=== PATIENT | female | born 1935 | race American Indian/Alaskan Native ===

== ENCOUNTER 2019-02-06 18:18 | Inpatient (IN) | payer MEDICARE ==
--- NOTE | 2019-02-06 19:48 | Emergency Department Report ---
HPI - General Chief Complaint: Weakness Time Seen by Provider: 02/06/19 19:18 - HPI HPI: 83-year-old female presents to this emergency Department by EMS from home with the complaint of some back pain and generalized body aches. The patient says that this has been going on for a long time and it has "never stopped." The patient is currently AAO 2 to person, place but not time and is a poor historian. EMS says that she has a history of hypertension and diabetes but the patient denies any past medical conditions. However she has a wrist band on showing a recent visit to [facility] and she has a right-sided chest port in place that was previously accessed. There is no family at bedside. EMS also says that the patient allegedly had a fall today. ED Past Medical Hx - Past Medical History Previous Medical History?: Yes Hx Hypertension: Yes Hx Diabetes: Yes Additional medical history: Chronic back pain - Social History Smoking Status: Never Smoker Substance Use Type: None ED Review of Systems ROS: Stated complaint: BACK PAIN/MALAISE Other details as noted in HPI Comment: Unobtainable due to pts medical conditions Musculoskeletal: back pain, myalgia Physical Exam - Physical Exam Vital Signs: Vital Signs 02/06/19 19:37 Temperature 97.9 F Pulse Rate 108 H Respiratory 18 Rate Blood Pressure 158/82 [Left] O2 Sat by Pulse 100 Oximetry Physical Exam: GENERAL: The patient is well-developed well-nourished. HEENT: Normocephalic. Atraumatic. Patient has moist mucous membranes. EYES: Extraocular motions are intact. NECK: Supple. Trachea is midline. CHEST/LUNGS: Clear to auscultation. There is no respiratory distress noted. HEART/CARDIOVASCULAR: Regular. There is no tachycardia. There is no gallop rub or murmur. ABDOMEN: Abdomen is soft, nontender. Patient has normal bowel sounds. There is no abdominal distention. SKIN: Skin is warm and dry. NEURO: The patient is awake and cooperative. AAO [address] but not time. Place is nonspecific as she can give hospital but not name of Hospital. Cranial nerves II through XII grossly intact. No facial asymmetry. MUSCULOSKELETAL: There is no tenderness or deformity. There is no limitation range of motion. BACK: There is no midline tenderness to palpation, step-off or obvious deformity. ED Course Vital Signs 02/06/19 19:37 Temperature 97.9 F Pulse Rate 108 H Respiratory 18 Rate Blood Pressure 158/82 [Left] O2 Sat by Pulse 100 Oximetry ED Medical Decision Making - Lab Data Result diagrams: 02/06/19 20:39 02/07/19 00:45 - Radiology Data Radiology results: report reviewed CT scan of the head without contrast does not show any bleed, shift, hydrocephalus, mass or large territorial infarct. CT scan of the cervical spine without contrast does not show any fracture, subluxation or any acute process. LUMBAR SPINE 3 VIEWS. INDICATION / CLINICAL INFORMATION: back pain COMPARISON: None available. FINDINGS: BONES / JOINT(S): Acute appearing compression superior endplate of L1. Mild degenerative disc disease scattered diffusely. SOFT TISSUES: No significant abnormality. ADDITIONAL FINDINGS: None. Signer Name: Azar Giang MD - Medical Decision Making Initially this patient was brought in with complaint of some back pain, generalized body aches and there was a questionable history of a fall. I later spoke with the patient's son who says that the patient did not in fact have any recent fall. However he just returned from his own admission to a hospital today and has not necessarily been around her enough to know. The patient has some baseline dementia. Her records from [place] indicate that she is AAO 2 at baseline, which she is at currently. For these reasons CT scan of the head and cervical spine, as well as x-rays of the thoracic and lumbar spine, were comp leted. The only abnormality found was a possible compression fracture of L1. Patient's labs show some hyperglycemia without signs of diabetic ketoacidosis, hyperkalemia with a potassium of 5.9, and a urinary tract infection. Patient was started on Rocephin and urine culture have been sent. She was given some IV fluid resuscitation and a dose of Kayexalate. The metabolic panel was repeated and the hyperkalemia has resolved. I attempted to ambulate this patient in the emergency department but she appears to weak. She will be admitted to the hospital for further evaluation and treatment was accepted for admission by the hospitalist, Dr. Mishra. - Differential Diagnosis hyperglycemia, DKA, dysrhythmia, CVA Critical Care Time: No Critical care attestation.: If time is entered above; I have spent that time in minutes in the direct care of this critically ill patient, excluding procedure time. ED Disposition Clinical Impression: Weakness, Hyperkalemia, Hyperglycemia Compression fracture of L1 vertebra Qualifiers: Encounter type: initial encounter Qualified Code(s): S32.010A - Wedge comp ression fracture of first lumbar vertebra, initial encounter for closed fracture Disposition: OP ADMIT IP TO THIS HOSP Is pt being admited?: Yes Condition: Fair Time of Disposition: 03:48
--- NOTE | 2019-02-06 20:45 | Cat Scan Report ---
CT head/brain wo con INDICATION: fall. TECHNIQUE: All CT scans at this location are performed using the following dose modulation technique: Automated exposure control. CONTRAST: None. COMPARISON: None available. FINDINGS: The ventricular system is appropriate in size and configuration without midline shift. Phys iologic calcification is noted at the basal ganglia. 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 Negative for mass, hemorrhage or acute appearing stroke. Imaged portions of the paranasal sinuses are clear. IMPRESSION: No acute abnormality. Signer Name: Azar Giang MD Signed: 02/06/2019 8:41 PM Workstation Name: [id number]
--- NOTE | 2019-02-06 20:49 | Cat Scan Report ---
CT cervical spine wo con INDICATION: fall. Neck pain. TECHNIQUE: All CT scans at this location are performed using the following dose modulation technique: Automated exposure control. CONTRAST: None. COMPARISON: None available. FINDINGS: Satisfactory alignment without vertebral compression. Degenerative disc disease is greatest at C4-C6 where changes are moderate. Small posterior osteophytes are present without significant bon y stenosis. No significant soft tissue injury. IMPRESSION: Degenerative disc disease greatest C4-C6 where changes are moderate. Signer Name: Azar Giang MD Signed: 02/06/2019 8:44 PM Workstation Name: [id number]
--- NOTE | 2019-02-06 20:50 | XRay Report ---
THORACIC SPINE 3 VIEWS. INDICATION / CLINICAL INFORMATION: back pain COMPARISON: None available. FINDINGS: BONES / JOINT(S): No acute fracture or subluxation. Are mild degenerative disc disease greatest mid t horacic spine. SOFT TISSUES: No significant abnormality. ADDITIONAL FINDINGS: None. Signer Name: Azar Giang MD Signed: 02/06/2019 8:45 PM Workstation Name: [id number]
--- NOTE | 2019-02-06 20:51 | XRay Report ---
THORACIC SPINE 3 VIEWS. INDICATION / CLINICAL INFORMATION: back pain COMPARISON: None available. FINDINGS: BONES / JOINT(S): Acute appearing compression superior endplate of L1. Mild degenerative disc disease scattered diffusely. SOFT TISSUES: No significant abnormality. ADDITIONAL FINDINGS: None. Signer Name: Azar Giang MD Signed: 02/06/2019 8:47 PM Workstation Name: [id number]
--- NOTE | 2019-02-06 20:51 | XRay Report ---
CHEST 1 VIEW INDICATION: trauma. COMPARISON: 01/25/2008 FINDINGS: Support devices: Sided chest port has its tip over the distal superior vena cava. Heart: Within normal limits. Lungs/Pleura: No acute air space or interstitial disease. Additional findings: None. IMPRESSION: No acute abnormality. Signer Name: Azar Giang MD Signed: 02/06/2019 8:46 PM Workstation Name: [id number]
[2019-02-06 21:17] LABS: Albumin 3.4 g/dL (3.9-5); Calcium 11.1 mg/dL (8.4-10.2)
[2019-02-06 21:37] LABS: Hematocrit 32.5 % (30.3-42.9); Hemoglobin 11.1 gm/dl (10.1-14.3); Mean Corpuscular HGB Conc 34 % (30-34); Mean Corpuscular Volume 91 fl (79-97); Platelet Count 227 K/mm3 (140-440); Red Blood Count 3.56 M/mm3 (3.65-5.03); Red Cell Distribution Width 14.6 % (13.2-15.2)
[2019-02-06] MEDS ORDERED: SODIUM POLYSTYRENE 15 GM/60 ML ORAL LIQD PO ONE (21:54)
[2019-02-06] MEDS ORDERED: SODIUM CHLORIDE 0.9% 1000 ML 1,000 ML IV ONE (22:03)
[2019-02-06 22:55] LABS: Bilirubin,Urine NEG (Negative); Blood,Urine SM (Negative); Color,Urine Yellow (Yellow); Mucus,Urine 2+ /HPF; Urobilinogen,Urine < 2.0 mg/dL (<2.0)
[2019-02-06 22:57] LABS: WBC,Urine > 182.0 /HPF (0.0-6.0)
[2019-02-06] MEDS ORDERED: cefTRIAXone/NS 1 GM/50 ML 1 GM/50 ML BAG IV ONE (22:59)
[2019-02-07 01:37] LABS: BUN/Creatinine Ratio 24; Blood Urea Nitrogen 24 mg/dL (7-17); Calcium 10.3 mg/dL (8.4-10.2); Hemolysis Index 44
[2019-02-07] MEDS ORDERED: ONDANSETRON 4 MG/2 ML INJ IV PRN (03:56)
--- NOTE | 2019-02-07 04:02 | History and Physical Report ---
History of Present Illness History of present illness: 83-year-old woman with a history of hypertension, dementia, diabetes, multiple myeloma, bladder mass was brought to the emergency room for evaluation of generalized weakness. Very difficult to obtain a history, her only complaint is abdominal pain. In the emergency room she was found to have a urinary tract infection, L1 compression fracture Review of systems Constitutional: no weight loss, chills, fever Ears, eyes, nose, mouth and throat: no nasal congestion, no nasal discharge, no sinus pressure, no vision change, no red eye. Neck: No neck pain or rigidity. Cardiovascular: no chest pain, palpitations Respiratory: no cough, shortness of breath Gastrointestinal: no hematochezia Genitourinary : no frequency , no hematuria Musculoskeletal: no joint swelling or muscle ache Integumentary: no rash, no pruritis Neurological:no parathesias numbness, focal weakness Endocrine: no cold or heat intolerance, no polyuria or polydipsia Hematologic/Lymphatic: no easy bruising, no easy bleeding, no gland swelling Allergic/Immunologic: no urticaria, no angioedema. PAST MEDICAL HISTORY: hypertension, dementia, diabetes, multiple myeloma, bladder mass PAST SURGICAL HISTORY: Unknown SOCIAL HISTORY: Denies alcohol, tobacco, drug FAMILY HISTORY: Hypertension Medications and Allergies Allergies Allergy/AdvReac Type Severity Reaction Status Date / Time No Known Allergies Allergy Verified 02/07/19 04:04 Home Medications Medication Instructions Recorded Confirmed Last Taken Type Butalb/Acetaminophen/Caffeine 02/07/19 Unknown History [Fioricet 50-300-40 mg CAP] Duloxetine HCl [Cymbalta] 20 mg PO 02/07/19 Unknown History Folic Acid 1 mg PO 02/07/19 Unknown History Insulin Aspart (Nf) [NovoLOG 02/07/19 Unknown History Flexpen] Insulin Detemir [Levemir Flextouch] 100 unit SQ 02/07/19 Unknown History Lidocaine [Lidoderm] 1 each TP 02/07/19 Unknown History Metformin HCl [Metformin HCl ER] 02/07/19 Unknown History Oxycodone HCl/Acetaminophen 02/07/19 Unknown History [Percocet 10/325 mg] Pantoprazole [Protonix TAB] 02/07/19 Unknown History QUEtiapine [SEROquel] 25 mg PO BID 02/07/19 02/07/19 Unknown History amLODIPine [Norvasc] 2.5 mg PO DAILY 02/07/19 02/07/19 Unknown History Active Meds: Active Medications Acetaminophen (Tylenol) 650 mg PO Q4H PRN PRN Reason: Pain MILD(1-3)/Fever >100.5/HASTINGS Enoxaparin Sodium (Enoxaparin) 30 mg SUB-Q QDAY JAMISON Sodium Chloride (Nacl 0.45% 1000 Ml) 1,000 mls @ 75 mls/hr IV DIRECT JAMISON Ceftriaxone Sodium (Rocephin/Ns 1 Gm/50 Ml) 1 gm in 50 mls @ 100 mls/hr IV Q24HR JAMISON; Protocol Ondansetron HCl (Zofran) 4 mg IV Q8H PRN PRN Reason: Nausea And Vomiting Sodium Chloride (Sodium Chloride Flush Syringe 10 Ml) 10 ml IV BID JAMISON Sodium Chloride (Sodium Chloride Flush Syringe 10 Ml) 10 ml IV PRN PRN PRN Reason: LINE FLUSH Exam - Physical Exam Narrative exam: Gen. appearance: Patient lying in bed, no apparent distress HEENT: Normocephalic, atraumatic, pupils equally round and reactive to light, extraocular movement intact, and no sclericterus,. No JVD or thyromegaly or nodule,neck supple, no carotid bruit ,mucous membranes moist, no exudate or erythema Heart: S1, S2, irregular rate and rhythm Lungs: Clear bilaterally, breathing comfortable Abdomen: Positive bowel sounds, tender, nondistended, no organomegaly Extremity:no edema cyanosis, clubbing Skin: no rash, dry, warm Neuro: cranial nerves II-12 intact, speech is fluent, motor and sensory intact - Constitutional Vitals: Temp Pulse Resp BP Pulse Ox 97.9 F 92 H 16 146/64 98 02/06/19 19:37 02/07/19 02:00 02/07/19 02:00 02/07/19 02:00 02/06/19 22:17 Results - Labs CBC & Chem 7: 02/06/19 20:39 02/07/19 00:45 Labs: Abnormal lab results 02/06/19 02/06/19 02/06/19 Range/Units 20:39 20:39 22:17 RBC 3.56 L (3.65-5.03) M/mm3 Sodium (137-145) mmol/L Potassium 5.9 H (3.6-5.0) mmol/L Chloride (98-107) mmol/L Carbon Dioxide 21 L (22-30) mmol/L BUN 25 H (7-17) mg/dL Glucose 268 H (65-100) mg/dL Calcium 11.1 H (8.4-10.2) mg/dL Total Protein 9.2 H (6.3-8.2) g/dL Albumin 3.4 L (3.9-5) g/dL Urine pH 8.0 H (5.0-7.0) Urine WBC (Auto) > 182.0 H (0.0-6.0) /HPF U Epithel Cells (Auto) 14.0 H (0-13.0) /HPF 02/07/19 Range/Units 00:45 RBC (3.65-5.03) M/mm3 Sodium 146 H (137-145) mmol/L Potassium (3.6-5.0) mmol/L Chloride 109.3 H (98-107) mmol/L Carbon Dioxide (22-30) mmol/L BUN 24 H (7-17) mg/dL Glucose 259 H (65-100) mg/dL Calcium 10.3 H (8.4-10.2) mg/dL Total Protein (6.3-8.2) g/dL Albumin (3.9-5) g/dL Urine pH (5.0-7.0) Urine WBC (Auto) (0.0-6.0) /HPF U Epithel Cells (Auto) (0-13.0) /HPF - Imaging and Cardiology CT Scan - head: report reviewed Assessment and Plan X-ray of the thoracic and lumbar spine reviewed CT head and CT spine reviewed Assessment Failure to thrive/urinary tract infection Start Rocephin, follow cultures L1 fracture Consult interventional radiology, physical therapy Abdominal pain Check CT abdomen hypertension IV hydralazine until meds are reconciled dementia Continue to monitor diabetes, Check fingersticks initiate insulin sliding scale DVT prophylaxis
[2019-02-07] MEDS ORDERED: hydrALAZINE 20 MG/1 ML INJ IV PRN (04:45)
--- NOTE | 2019-02-07 04:55 | Cat Scan Report ---
CT ABDOMEN AND PELVIS WITHOUT CONTRAST INDICATION / CLINICAL INFORMATION: MAIN: NAUSEA, VOMITING, GENERALIZED abd pain. . TECHNIQUE: Axial CT images were obtained through the abdomen and pelvis without IV contrast. All CT scans at [facility] location are performed using CT dose reduction for ALARA by means of automated exposure control. COMPARISON: None available. FINDINGS: LOWER CHEST: No significant abnormality. LIVER: Several low dense lesions within the liver largest measuring 1.7 cm, metastatic disease is a c oncern GALLBLADDER: Possible small calculus within the gallbladder BILE DUCTS: Biliary duct system is prominent with the common bile duct measures 7 mm PANCREAS: No significant abnormality. SPLEEN: No significant abnormality. ADRENALS: No significant abnormality. RIGHT KIDNEY and URETER: No significant abnormality. LEFT KIDNEY and URETER: No significant abnormality. STOMACH and SMALL BOWEL: No significant abnormality. COLON: Moderate amount of feces is present in the colon APPENDIX: Not identified PERITONEUM: No free fluid. No free air. No fluid collection. LYMPH NODES: No significant adenopathy. AORTA and ARTERIES: No significant abnormality. IVC and VEINS: No significant abnormality. URINARY BLADDER: Moderate severe distention of the urinary bladder. REPRODUCTIVE ORGANS: No significant abnormality. ADDITIONAL FINDINGS: None. SKELETAL SYSTEM: Compression fracture L1 is present with approximately 30% loss of vertebral body hei ght Total right hip arthroplasty is present-streak artifact noted IMPRESSION: 1. Several low dense lesions within the liver worrisome for metastatic disease, CT with intravenous c ontrast be of benefit for further evaluation 2. Urinary bladder distention 3. Large volume of gas and feces in the colon 4. Questionable cholelithiasis Signer Name: Lopez Ramos MD Signed: 02/07/2019 4:51 AM Workstation Name: [email or web address]
[2019-02-07] MEDS: ACETAMINOPHEN 325 MG TAB PO PRN ×3 (06:37→19:08)
[2019-02-07] MEDS: SODIUM CHLORIDE 0.45% 1000 ML 1,000 ML IV SCH ×2 (06:37→19:10)
[2019-02-07] MEDS: ENOXAPARIN 30 MG/0.3 ML INJ SUB-Q SCH (09:17)
[2019-02-07] MEDS: INSULIN LISPRO 100 UNIT/ML SUB-Q SCH ×4 (09:17→22:52)
--- NOTE | 2019-02-07 12:17 | Event Note ---
Date: 02/07/19 Patient with UTI, hyperkalemia,failure to thrive. I have seen and examined her. Continue current management.
--- NOTE | 2019-02-07 12:33 | Event Note ---
Date: 02/07/19 unable to obtain history from the patient due to dementia patient with no acute complaints will have IR evaluate imaging and comment tomorrow
[2019-02-07] MEDS: cefTRIAXone/NS 1 GM/50 ML 1 GM/50 ML BAG IV SCH (23:59)
[2019-02-08 04:17] LABS: Basophils % (Auto) 0.4 % (0.0-1.8); Eosinophils % (Auto) 0.6 % (0.0-4.3); Hematocrit 29.9 % (30.3-42.9); Hemoglobin 10.1 gm/dl (10.1-14.3); Lymphocytes # (Auto) 0.8 K/mm3 (1.2-5.4); Lymphocytes % (Auto) 16.7 % (13.4-35.0); Mean Corpuscular HGB Conc 34 % (30-34); Mean Corpuscular Volume 89 fl (79-97); Monocytes # (Auto) 0.5 K/mm3 (0.0-0.8); Monocytes % (Auto) 9.1 % (0.0-7.3); Platelet Count 195 K/mm3 (140-440); Red Blood Count 3.34 M/mm3 (3.65-5.03); Red Cell Distribution Width 14.5 % (13.2-15.2)
[2019-02-08 04:32] LABS: BUN/Creatinine Ratio 23; Blood Urea Nitrogen 18 mg/dL (7-17); Calcium 9.2 mg/dL (8.4-10.2); Hemolysis Index 4
[2019-02-08] MEDS ORDERED: POTASSIUM CHLORIDE ER 20 MEQ TAB PO ONE (04:58)
[2019-02-08] MEDS: ACETAMINOPHEN 325 MG TAB PO PRN (05:37)
[2019-02-08] MEDS: INSULIN LISPRO 100 UNIT/ML SUB-Q SCH ×4 (09:00→22:24)
[2019-02-08] MEDS: ENOXAPARIN 30 MG/0.3 ML INJ SUB-Q SCH (09:15)
[2019-02-08] MEDS: HYDROcodone/ACETAMINOPHEN 5-325 MG TAB PO PRN (12:29)
--- NOTE | 2019-02-08 14:50 | Progress Note ---
Assessment and Plan Assessment and plan: Failure to thrive PT consulted Urinary tract infection Started Rocephin, follow cultures L1 fracture Consulted interventional radiology, physical therapy Lumbar Brace recommended and I placed order Hypertension IV hydralazine until meds are reconciled Dementia Supportive carer Diabetes mellitus type 2 Check fingersticks initiate insulin sliding scale DVT prophylaxis with Lovenox Poss dc tomorrow History Interval history: Generalized weakness back pain Hospitalist Physical - Physical exam Narrative exam: Gen: Not in acute distress, lying in bed,malnourished HEENT: Normocephalic, atraumatic Neck: supple, no JVD Heart: S1 and S2 reg, no murmurs, rubs or gallop Lungs: Clear to auscultation, no wheezing Abd: soft, non tender , non distended, normal BS Ext: No edema, no clubbing, no cyanosis Neuro: Awake,alert, confused, dementia, moves all ext Back:Tender lower back - Constitutional Vitals: Temp Pulse Resp BP Pulse Ox 97.9 F 73 18 143/70 98 02/08/19 08:05 02/08/19 08:06 02/08/19 08:06 02/08/19 08:06 02/08/19 10:00 Results - Labs CBC & Chem 7: 02/08/19 03:46 02/08/19 03:46 Labs: Laboratory Last Values WBC 5.1 K/mm3 (4.5-11.0) 02/08/19 03:46 RBC 3.34 M/mm3 (3.65-5.03) L 02/08/19 03:46 Hgb 10.1 gm/dl (10.1-14.3) 02/08/19 03:46 Hct 29.9 % (30.3-42.9) L 02/08/19 03:46 MCV 89 fl (79-97) 02/08/19 03:46 MCH 30 pg (28-32) 02/08/19 03:46 MCHC 34 % (30-34) 02/08/19 03:46 RDW 14.5 % (13.2-15.2) 02/08/19 03:46 Plt Count 195 K/mm3 (140-440) 02/08/19 03:46 Lymph % (Auto) 16.7 % (13.4-35.0) 02/08/19 03:46 [place] % (Auto) 9.1 % (0.0-7.3) H 02/08/19 03:46 Eos % (Auto) 0.6 % (0.0-4.3) 02/08/19 03:46 Baso % (Auto) 0.4 % (0.0-1.8) 02/08/19 03:46 Lymph # 0.8 K/mm3 (1.2-5.4) L 02/08/19 03:46 [place] # 0.5 K/mm3 (0.0-0.8) 02/08/19 03:46 Eos # 0.0 K/mm3 (0.0-0.4) 02/08/19 03:46 Baso # 0.0 K/mm3 (0.0-0.1) 02/08/19 03:46 Seg Neutrophils % 73.2 % (40.0-70.0) H 02/08/19 03:46 Seg Neutrophils # 3.7 K/mm3 (1.8-7.7) 02/08/19 03:46 Sodium 135 mmol/L (137-145) L D 02/08/19 03:46 Potassium 3.0 mmol/L (3.6-5.0) L D 02/08/19 03:46 Chloride 103.7 mmol/L (98-107) 02/08/19 03:46 Carbon Dioxide 21 mmol/L (22-30) L 02/08/19 03:46 Anion Gap 13 mmol/L 02/08/19 03:46 BUN 18 mg/dL (7-17) H 02/08/19 03:46 Creatinine 0.8 mg/dL (0.7-1.2) 02/08/19 03:46 Estimated GFR > 60 ml/min 02/08/19 03:46 BUN/Creatinine Ratio 23 % 02/08/19 03:46 Glucose 124 mg/dL (65-100) H 02/08/19 03:46 POC Glucose 195 (70-105) H 02/08/19 11:44 Calcium 9.2 mg/dL (8.4-10.2) 02/08/19 03:46 Total Bilirubin 0.50 mg/dL (0.1-1.2) 02/06/19 20:39 AST 26 units/L (5-40) 02/06/19 20:39 ALT 10 units/L (7-56) 02/06/19 20:39 Alkaline Phosphatase 93 units/L (35-129) 02/06/19 20:39 Troponin T < 0.010 ng/mL (0.00-0.029) 02/07/19 02:12 Total Protein 9.2 g/dL (6.3-8.2) H 02/06/19 20:39 Albumin 3.4 g/dL (3.9-5) L 02/06/19 20:39 Albumin/Globulin Ratio 0.6 % 02/06/19 20:39 Urine Color Yellow (Yellow) 02/06/19 22:17 Urine Turbidity Cloudy (Clear) 02/06/19 22:17 Urine pH 8.0 (5.0-7.0) H 02/06/19 22:17 Ur Specific [place] 1.014 (1.003-1.030) 02/06/19 22:17 Urine Protein 30 mg/dl mg/dL (Negative) 02/06/19 22:17 Urine Glucose (UA) 50 mg/dL (Negative) 02/06/19 22:17 Urine Ketones Tr mg/dL (Negative) 02/06/19 22:17 Urine Blood Sm (Negative) 02/06/19 22:17 Urine Nitrite Neg (Negative) 02/06/19 22:17 Urine Bilirubin Neg (Negative) 02/06/19 22:17 Urine Urobilinogen < 2.0 mg/dL (<2.0) 02/06/19 22:17 Ur Leukocyte Esterase Lg (Negative) 02/06/19 22:17 Urine WBC (Auto) > 182.0 /HPF (0.0-6.0) H 02/06/19 22:17 Urine RBC (Auto) 7.0 /HPF (0.0-6.0) 02/06/19 22:17 U Epithel Cells (Auto) 14.0 /HPF (0-13.0) H 02/06/19 22:17 Urine WBC Clumps 2+ /HPF 02/06/19 22:17 Urine Mucus 2+ /HPF 02/06/19 22:17 Active Medications - Current Medications Current Medications: Generic Name Dose Route Start Last Admin Trade Name Freq PRN Reason Stop Dose Admin Acetaminophen 650 mg 02/07/19 03:56 02/08/19 05:37 Tylenol PO 650 mg Q4H PRN Administration Pain MILD(1-3)/Fever >100.5/HASTINGS Acetaminophen/Hydrocodone Bitart 1 each 02/08/19 11:53 02/08/19 12:29 [place] 5/325 PO 1 each Q6H PRN Administration Pain, Moderate (4-6) Enoxaparin Sodium 30 mg 02/07/19 10:00 02/08/19 09:15 Enoxaparin SUB-Q 30 mg QDAY JAMISON Administration Hydralazine HCl 5 mg 02/07/19 04:45 Apresoline IV Q6H PRN Hypertension Ceftriaxone Sodium 1 gm in 50 mls @ 100 mls/hr 02/07/19 22:00 02/07/19 23:59 Rocephin/Ns 1 Gm/50 Ml IV 100 mls/hr Q24H JAMISON Administration Protocol Insulin Human Lispro 0 unit 02/07/19 09:00 02/08/19 12:28 Humalog SUB-Q 2 unit ACHS JAMISON Administration Protocol Ondansetron HCl 4 mg 02/07/19 03:56 Zofran IV Q8H PRN Nausea And Vomiting Sodium Chloride 10 ml 02/07/19 10:00 02/08/19 09:15 Sodium Chloride Flush Syringe 10 Ml IV 10 ml BID JAMISON Administration Sodium Chloride 10 ml 02/07/19 03:56 Sodium Chloride Flush Syringe 10 Ml IV PRN PRN LINE FLUSH Nutrition/Malnutrition Assess - Dietary Evaluation Nutrition/Malnutrition Findings: Nutrition Notes Start: 02/07/19 1 1:37 Freq: Status: Active Protocol: Document 02/08/19 10:52 LM (Rec: 02/08/19 11:02 LM [email or web address]) Nutrition Notes Initial or Follow up Reassessment Current Diagnosis Diabetes,Hypertension Other Pertinent Diagnosis bladder mass, UTI, compression fracture of L1 vertebra, dementia Current Diet consistent CHO/cardiac Labs/Tests Na 135 K 3 BUN 18 BG 124 Pertinent Medications Humalog Height 5 ft 9 in Weight 42.32 kg [place] Body Weight (kg) 65.90 BMI 13.7 Weight Status Emaciated Subjective/Other Information Low BMI screen. Already following pt. Pt ate 50% of breakfast this AM. Pt stated she did not eat much at home [employer] and beleives she lost 20 lb. Pt could not recall time frame of wt loss or UBW. Pt stated she does not like Glucerna and has no trouble chewing or swallowing. Percent of energy/protein needs met: 67%/81% Burn Absent Trauma Absent GI Symptoms None Current % PO Fair (50-74%) Minimum of two criteria Yes Body Fat Depletion Moderate depletion (severe) Muscle Mass Moderate Depletion (severe) #1 Nutrition Diagnosis Malnutrition As Evidenced by Signs and Symptoms muscle and fat wasting, 20 lb wt loss Diagnosis Progress(for reassessment Continues documentation) Is patient on ventilator? No Is Patient Ambulatory and/or Out of Bed No REE-([facility]-confined to bed) 1150.356 Kcal/Kg value to use for calculation 38 Approximate Energy Requirements Using 1608 kcal/Kg Calculation Used for Recommendations Kcal/kg Additional Notes Protein: 51-63g (1.2-1.5g/kg) Fluid: 1 ml/kcal Nutrition Intervention Change Diet Order: Continue current Add Supplement/Snack (indicate name/kcal D/C Glucerna /protein ) Goal #1 Meet at least 80% of energy and protein needs Goal #2 wt gain/maintenacne Anticipated Discharge Needs: Consistent CHO/cardia with ONS Follow-Up By: 02/11/19 Additional Comments F/U for intakes
--- NOTE | 2019-02-08 15:52 | Consultation ---
History of Present Illness - Reason for Consult Consult date: 02/08/19 L1 compression fracture - History of Present Illness 83-year-old woman with a history of hypertension, dementia, diabetes, multiple myeloma, bladder mass was brought to the emergency room for evaluation of generalized weakness. Very difficult to obtain a history, her only complaint is abdominal pain. In the emergency room she was found to have a urinary tract infection, L1 compression fracture Review of systems Constitutional: no weight loss, chills, fever Ears, eyes, nose, mouth and throat: no nasal congestion, no nasal discharge, no sinus pressure, no vision change, no red eye. Neck: No neck pain or rigidity. Cardiovascular: no chest pain, palpitations Respiratory: no cough, shortness of breath Gastrointestinal: no hematochezia Genitourinary : no frequency , no hematuria Musculoskeletal: no joint swelling or muscle ache Integumentary: no rash, no pruritis Neurological:no parathesias numbness, focal weakness Endocrine: no cold or heat intolerance, no polyuria or polydipsia Hematologic/Lymphatic: no easy bruising, no easy bleeding, no gland swelling Allergic/Immunologic: no urticaria, no angioedema. PAST MEDICAL HISTORY: hypertension, dementia, diabetes, multiple myeloma, bladder mass PAST SURGICAL HISTORY: Unknown SOCIAL HISTORY: Denies alcohol, tobacco, drug FAMILY HISTORY: Hypertension Medications and Allergies Allergies Allergy/AdvReac Type Severity Reaction Status Date / Time Sulfa (Sulfonamide Allergy Unknown Verified 02/07/19 07:44 Antibiotics) Home Medications Medication Instructions Recorded Confirmed Last Taken Type Acetaminophen [Tylenol] 650 mg PO Q6HR PRN 02/07/19 02/07/19 Unknown History Bisacodyl [Women's Gentle Laxative] 5 mg PO DAILY PRN 02/07/19 02/07/19 Unknown History Duloxetine HCl [Cymbalta] 20 mg PO DAILY 02/07/19 02/07/19 Unknown History Folic Acid 1 mg PO DAILY 02/07/19 02/07/19 Unknown History Insulin Glargine [Lantus VIAL] 10 unit SUB-Q DAILY 02/07/19 02/07/19 Unknown History Lidocaine [Lidoderm] 1 each TP DAILY 02/07/19 02/07/19 Unknown History Pantoprazole [Protonix TAB] 40 mg PO DAILY 02/07/19 02/07/19 Unknown History Polyethylene Glycol 3350 [Miralax 17 gm PO DAILY 02/07/19 02/07/19 Unknown History 3350] QUEtiapine [SEROquel] 25 mg PO BID 02/07/19 02/07/19 Unknown History Sennosides [Senna] 2 tab PO HS 02/07/19 02/07/19 Unknown History amLODIPine [Norvasc] 2.5 mg PO DAILY 02/07/19 02/07/19 Unknown History Active Meds: Active Medications Acetaminophen (Tylenol) 650 mg PO Q4H PRN PRN Reason: Pain MILD(1-3)/Fever >100.5/HASTINGS Last Admin: 02/08/19 05:37 Dose: 650 mg Documented by: Acetaminophen/Hydrocodone Bitart ([place] 5/325) 1 each PO Q6H PRN PRN Reason: Pain, Moderate (4-6) Last Admin: 02/08/19 12:29 Dose: 1 each Documented by: Enoxaparin Sodium (Enoxaparin) 30 mg SUB-Q QDAY [facility] Last Admin: 02/08/19 09:15 Dose: 30 mg Documented by: Hydralazine HCl (Apresoline) 5 mg IV Q6H PRN PRN Reason: Hypertension Ceftriaxone Sodium (Rocephin/Ns 1 Gm/50 Ml) 1 gm in 50 mls @ 100 mls/hr IV Q24H [facility]; Protocol Last Admin: 02/07/19 23:59 Dose: 100 mls/hr Documented by: Insulin Human Lispro (Humalog) 0 unit SUB-Q ACHS [facility]; Protocol Last Admin: 02/08/19 12:28 Dose: 2 unit Documented by: Ondansetron HCl (Zofran) 4 mg IV Q8H PRN PRN Reason: Nausea And Vomiting Sodium Chloride (Sodium Chloride Flush Syringe 10 Ml) 10 ml IV BID [facility] Last Admin: 02/08/19 09:15 Dose: 10 ml Documented by: Sodium Chloride (Sodium Chloride Flush Syringe 10 Ml) 10 ml IV PRN PRN PRN Reason: LINE FLUSH Review of Systems ROS unobtainable: due to mental status Exam - Constitutional Vitals: Temp Pulse Resp BP Pulse Ox 98.0 F 107 H 18 119/65 98 02/08/19 13:09 02/08/19 13:10 02/08/19 13:09 02/08/19 13:09 02/08/19 13:10 General appearance: Present: mild distress (diffuse weakness, sacral discomfort), cachectic - EENT Eyes: Present: EOM intact ENT: hearing intact - Respiratory Respiratory effort: normal - Abdominal General gastrointestinal: Present: soft, non-tender - Neurologic Neurologic: moves all extremities, other (patient has diffuse achiness/myalgias. Her spine was palpated with discomfort at the sacral levels, with only mild discomfort at her upper lumbar level) Results - Labs CBC & Chem 7: 02/08/19 03:46 02/08/19 03:46 Labs: Abnormal lab results 02/07/19 02/08/19 02/08/19 Range/Units 16:50 03:46 03:46 RBC 3.34 L (3.65-5.03) M/mm3 Hct 29.9 L (30.3-42.9) % [place] % (Auto) 9.1 H (0.0-7.3) % Lymph # 0.8 L (1.2-5.4) K/mm3 Seg Neutrophils % 73.2 H (40.0-70.0) % Sodium 135 L D (137-145) mmol/L Potassium 3.0 L D (3.6-5.0) mmol/L Carbon Dioxide 21 L (22-30) mmol/L BUN 18 H (7-17) mg/dL Glucose 124 H (65-100) mg/dL POC Glucose 170 H (70-105) 02/08/19 02/08/19 Range/Units 07:35 11:44 RBC (3.65-5.03) M/mm3 Hct (30.3-42.9) % [place] % (Auto) (0.0-7.3) % Lymph # (1.2-5.4) K/mm3 Seg Neutrophils % (40.0-70.0) % Sodium (137-145) mmol/L Potassium (3.6-5.0) mmol/L Carbon Dioxide (22-30) mmol/L BUN (7-17) mg/dL Glucose (65-100) mg/dL POC Glucose 153 H 195 H (70-105) - Imaging and Cardiology CT scan - abdomen: report reviewed, image reviewed Assessment and Plan 83-year-old female with multiple medical issues including L1 compression fracture. Patient has diffuse myalgias and arthralgias with cachexia and discomfort at her sacral region. She has only mild discomfort at her upper lumbar levels. Kyphoplasty would provide minimal benefit for this patient. Recommend attempting to use lumbar brace to see if this provides a benefit, and if not, conservative care with pain medication is reasonable. Unfortunately, patient has diffuse myalgias and arthralgias and failure to thrive rather than a focal pain source at L1. Can follow up as outpatient if desired.
[2019-02-08] MEDS: cefTRIAXone/NS 1 GM/50 ML 1 GM/50 ML BAG IV SCH (21:06)
[2019-02-08] MEDS ORDERED: ACETAMINOPHEN 325 MG TAB PO PRN (21:56)
[2019-02-08] MEDS ORDERED: SENNOSIDES PO SCH (22:00)
[2019-02-08] MEDS: QUEtiapine 25 MG TAB PO SCH (22:22)
[2019-02-08] MEDS: SENNOSIDES 8.6 MG TAB PO SCH (22:22)
[2019-02-09] MEDS: ACETAMINOPHEN 325 MG TAB PO PRN (06:35)
[2019-02-09 06:36] LABS: Hematocrit 26.5 % (30.3-42.9); Hemoglobin 8.8 gm/dl (10.1-14.3); Mean Corpuscular HGB Conc 33 % (30-34); Mean Corpuscular Volume 91 fl (79-97); Platelet Count 201 K/mm3 (140-440); Red Blood Count 2.92 M/mm3 (3.65-5.03); Red Cell Distribution Width 14.7 % (13.2-15.2)
[2019-02-09 07:12] LABS: BUN/Creatinine Ratio 16; Blood Urea Nitrogen 13 mg/dL (7-17); Calcium 9.4 mg/dL (8.4-10.2); Hemolysis Index 10
[2019-02-09] MEDS: INSULIN LISPRO 100 UNIT/ML SUB-Q SCH ×4 (07:30→22:05)
[2019-02-09] MEDS: INSULIN GLARGINE 100 UNITS/ML SUB-Q SCH ×2 (08:37→19:47)
[2019-02-09] MEDS: amLODIPine 5 MG TAB PO SCH ×2 (08:41→19:45)
[2019-02-09] MEDS: FOLIC ACID 1 MG TAB PO SCH ×2 (08:42→19:46)
[2019-02-09] MEDS: DULoxetine 20 MG CAP PO SCH ×2 (08:42→19:47)
[2019-02-09] MEDS: ENOXAPARIN 30 MG/0.3 ML INJ SUB-Q SCH ×2 (08:43→19:47)
[2019-02-09] MEDS: PANTOPRAZOLE 40 MG TAB PO SCH ×2 (08:43→19:46)
[2019-02-09] MEDS: QUEtiapine 25 MG TAB PO SCH ×3 (08:43→22:06)
[2019-02-09] MEDS: LIDOCAINE 5% 1 EACH PATCH TD SCH ×2 (08:43→19:46)
[2019-02-09] MEDS: HYDROcodone/ACETAMINOPHEN 5-325 MG TAB PO PRN ×2 (10:26→20:03)
--- NOTE | 2019-02-09 13:24 | Discharge Summary ---
Providers - Providers Date of Admission: 02/07/19 03:56 Date of discharge: 02/10/19 Attending physician: RASHID BURRELL 02/07/19 04:33 Physical Therapy Evaluation and Treat [CONS] Routine Comment: Reason For Exam: eval 02/07/19 06:00 Consult to Interventional Radiology [CONS] Routine Consulting Provider: JAD REDDY Reason For Exam: compression fx Place consult to:: answering service Notified:: notified 02/08/19 15:50 Physical Therapy Evaluation and Treat [CONS] Routine Comment: Reason For Exam: lumbar brace 02/08/19 16:37 Consult to Case Management [CONS] Urgent Services Needed at Discharge: Other Notified:: LEFT MSG Was contact made?: No Comment:: NEED BACK BRACE OR LUMBAR CORSET 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 The patient was admitted with diagnosis of urinary tract infection and L1 compression fracture. The patient was seen by Dr. collado for potential kyphoplasty. However, Dr. Kim felt that kyphoplasty would provide minimal benefit and recommended attempting to use lumbar brace to see if this provides a benefit, and if not, conservative care with pain medication is reasonable. PT evaluated the patient and recommended subacute rehab. However, the family refused. I discussed the case with social work who will arrange for home PT/OT. With regards to the UTI, patient was treated with Rocephin and urine culture was negative. Patient had no evidence of leukocytosis at the time of discharge. Dedicated discharge time 32 minutes. Disposition: DC-01 TO HOME OR SELFCARE Time spent for discharge: 32 - Discharge Diagnoses (1) Compression fracture of L1 vertebra Status: Acute Qualifiers: Encounter type: initial encounter Qualified Code(s): S32.010A - [place] compression fracture of first lumbar vertebra, initial encounter for closed fracture (2) Hyperglycemia Status: Acute (3) Weakness Status: Acute Core Measure Documentation - Palliative Care Palliative Care/ Comfort Measures: Not Applicable - Core Measures Any of the following diagnoses?: none Exam - Constitutional Vitals: Temp Pulse Resp BP Pulse Ox 98.2 F 95 H 16 140/80 97 02/09/19 07:38 02/09/19 08:41 02/09/19 07:38 02/09/19 08:41 02/09/19 07:38 General appearance: Present: no acute distress, well-nourished - EENT Eyes: Present: PERRL ENT: hearing intact, clear oral mucosa - Neck Neck: Present: supple, normal ROM - Respiratory Respiratory effort: normal Respiratory: bilateral: CTA - Cardiovascular Heart Sounds: Present: S1 & S2. Absent: rub, click - Extremities Extremities: pulses symmetrical, No edema Peripheral Pulses: within normal limits - Abdominal General gastrointestinal: Present: soft, non-tender, non-distended, normal bowel sounds Female genitourinary: Present: normal - Integumentary Integumentary: Present: clear, warm, dry - Musculoskeletal Musculoskeletal: gait normal, strength equal bilaterally - Psychiatric Psychiatric: appropriate mood/affect, intact judgment & insight - Neurologic Neurologic: CNII-XII intact, moves all extremities Plan Activity: advance as tolerated Weight Bearing Status: Weight Bear as Tolerated Diet: regular Special Instructions: physical therapy, home health RN Follow up with: RASHEEDA HERRON MD [Primary Care Provider] - 3-5 Days JAD TSAI MD [Staff Physician] - 7 Days
[2019-02-09] MEDS ORDERED: NEOMY 3.5 MG/BACIT 400 UNITS/POLY B 5000 UNITS/GM OINT PACKET TP ONE (16:58)
[2019-02-09] MEDS: cefTRIAXone/NS 1 GM/50 ML 1 GM/50 ML BAG IV SCH (22:04)
[2019-02-09] MEDS: SENNOSIDES 8.6 MG TAB PO SCH (22:05)
[2019-02-10] MEDS: HYDROcodone/ACETAMINOPHEN 5-325 MG TAB PO PRN (06:52)
[2019-02-10 08:19] VITALS: BP 206/88
[2019-02-10] MEDS: QUEtiapine 25 MG TAB PO SCH (09:03)
[2019-02-10] MEDS: amLODIPine 5 MG TAB PO SCH (09:04)
[2019-02-10] MEDS: ENOXAPARIN 30 MG/0.3 ML INJ SUB-Q SCH (09:05)
[2019-02-10] MEDS: PANTOPRAZOLE 40 MG TAB PO SCH (09:10)
--- NOTE | 2019-02-10 09:19 | Progress Note ---
Assessment and Plan Assessment and plan: Failure to thrive PT consulted and recommended subacute rehab but the son refuses and would like to take the patient home. Urinary tract infection Started Rocephin, follow cultures L1 fracture Consulted interventional radiology, physical therapy Lumbar Brace recommended and I placed order Hypertension IV hydralazine until meds are reconciled Dementia Supportive carer Diabetes mellitus type 2 Check fingersticks initiate insulin sliding scale DVT prophylaxis with Lovenox Poss dc tomorrow - Patient Problems (1) Compression fracture of L1 vertebra Current Visit: Yes Status: Acute Qualifiers: Encounter type: initial encounter Qualified Code(s): S32.010A - [place] compression fracture of first lumbar vertebra, initial encounter for closed fracture (2) Hyperglycemia Current Visit: Yes Status: Acute (3) Weakness Current Visit: Yes Status: Acute History Interval history: No new issues overnight. Hospitalist Physical - Constitutional Vitals: Temp Pulse Resp BP Pulse Ox 97.4 F L 98 H 18 206/88 98 02/10/19 07:10 02/10/19 09:04 02/10/19 07:10 02/10/19 09:04 02/10/19 08:12 General appearance: Present: no acute distress, well-nourished - EENT Eyes: Present: PERRL, EOM intact ENT: hearing intact, clear oral mucosa, dentition normal - Neck Neck: Present: supple, normal ROM - Respiratory Respiratory effort: normal Respiratory: bilateral: CTA - Cardiovascular Rhythm: regular Heart Sounds: Present: S1 & S2. Absent: gallop, rub - Extremities Extremities: no ischemia, No edema, Full ROM - Abdominal General gastrointestinal: soft, non-tender, non-distended, normal bowel sounds - Integumentary Integumentary: Present: clear, warm, dry - Neurologic Neurologic: CNII-XII intact, moves all extremities Results - Labs CBC & Chem 7: 02/09/19 05:41 02/09/19 05:41 Labs: Laboratory Last Values WBC 4.6 K/mm3 (4.5-11.0) 02/09/19 05:41 RBC 2.92 M/mm3 (3.65-5.03) L 02/09/19 05:41 Hgb 8.8 gm/dl (10.1-14.3) L 02/09/19 05:41 Hct 26.5 % (30.3-42.9) L 02/09/19 05:41 MCV 91 fl (79-97) 02/09/19 05:41 MCH 30 pg (28-32) 02/09/19 05:41 MCHC 33 % (30-34) 02/09/19 05:41 RDW 14.7 % (13.2-15.2) 02/09/19 05:41 Plt Count 201 K/mm3 (140-440) 02/09/19 05:41 Lymph % (Auto) 16.7 % (13.4-35.0) 02/08/19 03:46 [place] % (Auto) 9.1 % (0.0-7.3) H 02/08/19 03:46 Eos % (Auto) 0.6 % (0.0-4.3) 02/08/19 03:46 Baso % (Auto) 0.4 % (0.0-1.8) 02/08/19 03:46 Lymph # 0.8 K/mm3 (1.2-5.4) L 02/08/19 03:46 [place] # 0.5 K/mm3 (0.0-0.8) 02/08/19 03:46 Eos # 0.0 K/mm3 (0.0-0.4) 02/08/19 03:46 Baso # 0.0 K/mm3 (0.0-0.1) 02/08/19 03:46 Seg Neutrophils % 73.2 % (40.0-70.0) H 02/08/19 03:46 Seg Neutrophils # 3.7 K/mm3 (1.8-7.7) 02/08/19 03:46 Sodium 141 mmol/L (137-145) 02/09/19 05:41 Potassium 3.4 mmol/L (3.6-5.0) L 02/09/19 05:41 Chloride 108.7 mmol/L (98-107) H 02/09/19 05:41 Carbon Dioxide 21 mmol/L (22-30) L 02/09/19 05:41 Anion Gap 15 mmol/L 02/09/19 05:41 BUN 13 mg/dL (7-17) 02/09/19 05:41 Creatinine 0.8 mg/dL (0.7-1.2) 02/09/19 05:41 Estimated GFR > 60 ml/min 02/09/19 05:41 BUN/Creatinine Ratio 16 % 02/09/19 05:41 Glucose 156 mg/dL (65-100) H 02/09/19 05:41 POC Glucose 124 (70-105) H 02/10/19 07:16 Calcium 9.4 mg/dL (8.4-10.2) 02/09/19 05:41 Total Bilirubin 0.50 mg/dL (0.1-1.2) 02/06/19 20:39 AST 26 units/L (5-40) 02/06/19 20:39 ALT 10 units/L (7-56) 02/06/19 20:39 Alkaline Phosphatase 93 units/L (35-129) 02/06/19 20:39 Troponin T < 0.010 ng/mL (0.00-0.029) 02/07/19 02:12 Total Protein 9.2 g/dL (6.3-8.2) H 02/06/19 20:39 Albumin 3.4 g/dL (3.9-5) L 02/06/19 20:39 Albumin/Globulin Ratio 0.6 % 02/06/19 20:39 Urine Color Yellow (Yellow) 02/06/19 22:17 Urine Turbidity Cloudy (Clear) 02/06/19 22:17 Urine pH 8.0 (5.0-7.0) H 02/06/19 22:17 Ur Specific [place] 1.014 (1.003-1.030) 02/06/19 22:17 Urine Protein 30 mg/dl mg/dL (Negative) 02/06/19 22:17 Urine Glucose (UA) 50 mg/dL (Negative) 02/06/19 22:17 Urine Ketones Tr mg/dL (Negative) 02/06/19 22:17 Urine Blood Sm (Negative) 02/06/19 22:17 Urine Nitrite Neg (Negative) 02/06/19 22:17 Urine Bilirubin Neg (Negative) 02/06/19 22:17 Urine Urobilinogen < 2.0 mg/dL (<2.0) 02/06/19 22:17 Ur Leukocyte Esterase Lg (Negative) 02/06/19 22:17 Urine WBC (Auto) > 182.0 /HPF (0.0-6.0) H 02/06/19 22:17 Urine RBC (Auto) 7.0 /HPF (0.0-6.0) 02/06/19 22:17 U Epithel Cells (Auto) 14.0 /HPF (0-13.0) H 02/06/19 22:17 Urine WBC Clumps 2+ /HPF 02/06/19 22:17 Urine Mucus 2+ /HPF 02/06/19 22:17 Active Medications - Current Medications Current Medications: Generic Name Dose Route Start Last Admin Trade Name Freq PRN Reason Stop Dose Admin Acetaminophen 650 mg 02/07/19 03:56 02/09/19 06:35 Tylenol PO 650 mg Q4H PRN Administration Pain MILD(1-3)/Fever >100.5/HASTINGS Acetaminophen/Hydrocodone Bitart 1 each 02/08/19 11:53 02/10/19 06:52 [place] 5/325 PO 1 each Q6H PRN Administration Pain, Moderate (4-6) Amlodipine Besylate 2.5 mg 02/09/19 10:00 02/10/19 09:04 Amlodipine PO 2.5 mg DAILY JAMISON Administration Bisacodyl 5 mg 02/08/19 21:56 02/09/19 10:26 Dulcolax PO 5 mg DAILY PRN Administration Constipation Duloxetine HCl 20 mg 02/09/19 10:00 02/09/19 19:47 Cymbalta PO Not Given DAILY [facility] Enoxaparin Sodium 30 mg 02/07/19 10:00 02/10/19 09:05 Enoxaparin SUB-Q 30 mg QDAY JAMISON Administration Folic Acid 1 mg 02/09/19 10:00 02/09/19 19:46 Folvite PO Not Given DAILY [facility] Hydralazine HCl 5 mg 02/07/19 04:45 02/10/19 08:55 Apresoline IV 5 mg Q6H PRN Administration Hypertension Ceftriaxone Sodium 1 gm in 50 mls @ 100 mls/hr 02/07/19 22:00 02/09/19 22:04 Rocephin/Ns 1 Gm/50 Ml IV 100 mls/hr Q24H JAMISON Administration Protocol Insulin Glargine 10 units 02/09/19 10:00 02/09/19 19:47 Lantus SUB-Q Not Given DAILY [facility] Insulin Human Lispro 0 unit 02/07/19 09:00 02/09/19 22:05 Humalog SUB-Q 2 unit ACHS JAMISON Administration Protocol Lidocaine 1 each 02/09/19 10:00 02/09/19 19:46 Lidoderm 5% TD Not Given DAILY JAMISON Ondansetron HCl 4 mg 02/07/19 03:56 Zofran IV Q8H PRN Nausea And Vomiting Pantoprazole Sodium 40 mg 02/09/19 10:00 02/10/19 09:10 Protonix PO 40 mg DAILY JAMISON Administration Quetiapine Fumarate 25 mg 02/08/19 22:00 02/10/19 09:03 Seroquel PO 25 mg BID JAMISON Administration Senna 17.2 mg 02/08/19 22:00 02/09/19 22:05 Senokot PO 17.2 mg QHS JAMISON Administration Sodium Chloride 10 ml 02/07/19 10:00 02/09/19 22:06 Sodium Chloride Flush Syringe 10 Ml IV 10 ml BID JAMISON Administration Sodium Chloride 10 ml 02/07/19 03:56 Sodium Chloride Flush Syringe 10 Ml IV PRN PRN LINE FLUSH Nutrition/Malnutrition Assess - Dietary Evaluation Nutrition/Malnutrition Findings: Nutrition Notes Start: 02/07/19 11:37 Freq: Status: Active Protocol: Document 02/08/19 10:52 LM (Rec: 02/08/19 11:02 LM [id number]) Nutrition Notes Initial or Follow up Reassessment Current Diagnosis Diabetes,Hypertension Other Pertinent Diagnosis bladder mass, UTI, compression fracture of L1 vertebra, dementia Current Diet consistent CHO/cardiac Labs/Tests Na 135 K 3 BUN 18 BG 124 Pertinent Medications Humalog Height 5 ft 9 in Weight 42.32 kg [place] Body Weight (kg) 65.90 BMI 13.7 Weight Status Emaciated Subjective/Other Information Low BMI screen. Already following pt. Pt ate 50% of breakfast this AM. 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 Pt could not recall time frame of wt loss or UBW. Pt stated she does not like Glucerna and has no trouble chewing or swallowing. Percent of energy/protein needs met: 67%/81% Burn Absent Trauma Absent GI Symptoms None Current % PO Fair (50-74%) Minimum of two criteria Yes Body Fat Depletion Moderate depletion (severe) Muscle Mass Moderate Depletion (severe) #1 Nutrition Diagnosis Malnutrition As Evidenced by Signs and Symptoms muscle and fat wasting, 20 lb wt loss Diagnosis Progress(for reassessment Continues documentation) Is patient on ventilator? No Is Patient Ambulatory and/or Out of Bed No REE-([facility]-confined to bed) 1150.356 Kcal/Kg value to use for calculation 38 Approximate Energy Requirements Using 1608 kcal/Kg Calculation Used for Recommendations Kcal/kg Additional Notes Protein: 51-63g (1.2-1.5g/kg) Fluid: 1 ml/kcal Nutrition Intervention Change Diet Order: Continue current Add Supplement/Snack (indicate name/kcal D/C Glucerna /protein ) Goal #1 Meet at least 80% of energy and protein needs Goal #2 wt gain/maintenacne Anticipated Discharge Needs: Consistent CHO/cardia with ONS Follow-Up By: 02/11/19 Additional Comments F/U for intakes
== END 2019-02-10 12:45 | disposition home health service (06) | DRG 551 ==
LOC: ED 18:18 → 2B-ACE 02-07 03:56
PROVIDERS: ADMIT Internal Medicine; ATTEND Hospitalist
DX: S32.010A Wedge compression fracture of first lumbar vertebra, initial encounter for closed fracture (principal); E43 Unspecified severe protein-calorie malnutrition; N39.0 Urinary tract infection, site not specified; R62.7 Adult failure to thrive; I10 Essential (primary) hypertension; F03.90 Unspecified dementia, unspecified severity, without behavioral disturbance, psychotic disturbance, mood disturbance, and anxiety; G89.29 Other chronic pain; M54.9 Dorsalgia, unspecified; E11.65 Type 2 diabetes mellitus with hyperglycemia; E87.5 Hyperkalemia; Z85.79 Personal history of other malignant neoplasms of lymphoid, hematopoietic and related tissues; Z82.49 Family history of ischemic heart disease and other diseases of the circulatory system; Z88.2 Allergy status to sulfonamides; Z79.899 Other long term (current) drug therapy; Z79.4 Long term (current) use of insulin; Y93.89 Activity, other specified; Y92.89 Other specified places as the place of occurrence of the external cause; Y99.8 Other external cause status
CPT/HCPCS: 36415; 70450; 71045; 72072; 72100; 72125; 74176; 80048; 80053; 81001; 82962; 84484; 85025; 85027; 87086; 87116; 93005; 93010; G0378; J0360; J0696; J1642; J1650; J1815; J7030